=== PATIENT | female | born 1980 | race Two or more races ===

== ENCOUNTER 2018-06-08 23:47 | Inpatient (IN) | payer BC ==
[~2018-06-08] VITALS: Ht 172.7 cm; Wt 57.6 kg
[2018-06-08 20:00] VITALS: BP 103/73
[2018-06-09] VITALS (10 sets, daily range): BP systolic 91–110; BP diastolic 50–73
[2018-06-09] MEDS ORDERED: IV NS 0.9% 1,000 ML BAG IV ONE
[2018-06-09] MEDS ORDERED: ONDANSETRON HCL/PF 4 MG/2 ML VIAL IVP ONE
--- NOTE | 2018-06-09 | NUR ---
[id number] FR HOME FOR SYNCOPAL EPISODE IN [place] [facility], PER EMS, PT'S SIGNIFICANT OTHER HEARD THE PT DROP TO THE FLOOR BUT DID NOT WITNESS THE SYNCOPE. BG 111 IN FIELD. PT IS AAOX4. PT STATES HEADACHE PRIOR TO SYNCOPAL EPISODE. SKIN WNL. NO TRAUMA NOTED. PT DENIES HEAD TRAUMA. NO S/S OF DISTRESS NOTED. RR EVEN AND UNLABORED. PT PLACED ON BUNK ASSEMBLER AND POX. PT SAFETY AND COMFORT MEASURES IN PLACE. BEDSIDE FOR EVAL
[2018-06-09] MEDS ORDERED: ONDANSETRON HCL/PF 4 MG/2 ML VIAL ONE ×2 (00:02→01:04)
[2018-06-09 00:14] LABS: BASOPHILS % (AUTO) 0.4 % (0.0-2.0); EOSINOPHILS % (AUTO) 1.3 % (0.0-6.0); HEMATOCRIT 31 % (33-45); HEMOGLOBIN 9.7 g/dL (11.5-14.8); LYMPHOCYTES # (AUTO) 3.5 /CMM (0.8-4.8); LYMPHOCYTES % (AUTO) 41.6 % (20.0-44.0); MEAN CORPUSCULAR HGB CONC 31 g/dl (31.0-36.0); MEAN CORPUSCULAR VOLUME 81 fL (82-100); MONOCYTES # (AUTO) 0.5 /CMM (0.1-1.30); MONOCYTES % (AUTO) 5.6 % (2.0-12.0); NEUTROPHILS # (AUTO) 4.3 /CMM (1.8-8.9); NEUTROPHILS % (AUTO) 51.1 % (43.0-81.0); PLATELET COUNT (AUTO) 222 /CMM (150-450); RDW COEFFICIENT OF VARIATION 16.9 (11.5-15.0); RED BLOOD CELL COUNT(AUTO) 3.81 MIL/uL (4.0-5.2); WHITE BLOOD COUNT (AUTO) 8.4 K/uL (4.3-11.0)
[2018-06-09 00:35] LABS: INR 1.02 (0.87-1.13)
[2018-06-09 00:57] LABS: ALBUMIN 4.1 g/dL (3.4-5.0); BILIRUBIN,DIRECT 0.1 mg/dL (0.0-0.2); BILIRUBIN,TOTAL 0.4 mg/dL (0.2-1.0); TOTAL PROTEIN, SERUM 7.8 g/dL (6.4-8.2)
[2018-06-09 00:59] LABS: TROPONIN I 0.248 ng/mL (0.00-0.056)
[2018-06-09] MEDS ORDERED: ONDANSETRON HCL/PF 4 MG/2 ML VIAL IV ONE (01:00)
[2018-06-09 01:01] LABS: CALCIUM, SERUM 9.3 mg/dL (8.5-10.1); CREATININE 0.9 mg/dL (0.6-1.3); POTASSIUM 3.5 mmol/L (3.5-5.1)
--- NOTE | 2018-06-09 01:09 | NUR ---
PT TO CT
--- NOTE | 2018-06-09 02:05 | NUR ---
Patient is resting comfortably in bed with eyes closed. Easily aroused. VSS
[2018-06-09] MEDS ORDERED: ASPIRIN 325 MG TABLET ONE (02:28)
[2018-06-09] MEDS ORDERED: ASPIRIN 325 MG TABLET PO ONE (02:30)
--- NOTE | 2018-06-09 03:41 | NUR ---
CALLED RN SUP FOR TELE BED
--- NOTE | 2018-06-09 03:42 | NUR ---
PT ASSIGNED TO [facility] [id number]
--- NOTE | 2018-06-09 04:00 | NUR ---
REPORT GIVEN TO TRESSA DUPONT FOR CELY
--- NOTE | 2018-06-09 04:15 | NUR ---
tele/rn notes RECEIVED NEW ADMIT PATIENT IS A 37 Y.O FEMALE ADMITTED FROM ER FOR SYNCOPAL EPISODE CAUSED HER TO FALL IN HER KITCHEN FLOOR, WITH HEADACHE, HAS HISTORY OF HEAVY MENSTRUAL BLEEDING, CURRENTLY TAKING CONTROL PILL RECENTLY FOR ABOUT A WEEK., ALERT, ORIENTED X3, AMBULATORY AND ABLE TO VERBALIZE, PARTICIPATE WITH CARE, TELE READING WITH NSR AT 72, RESPIRATIONS EVEN AND UNLABORED, perrla, DENIES AND NO GUARDING OR GRIMACE, SKIN WARM TO TOUCH, PALE IN APPEARANCE, RIGHT WRIST GAUGE 20 PATENT, HGB LEVEL LOW AT 9.7, ADMITTED FOR NSTEMI WITH TROPONIN LEVEL HIGH AT 0.248. BELONGINGS CHECK AND RECONCILED, ROOM ORIENTATION PROVIDED, INSTRUCTED TO USE CALL LIGHTS FOR ASSISTANCE, FLAVORING MACHINE OPERATOR YAKELIN CONTACTED AWAITING FOR MEDICATION ORDERS, SKIN INTACT.
[2018-06-09] MEDS ORDERED: ONDANSETRON HCL/PF 4 MG/2 ML VIAL IVP PRN (06:00)
[2018-06-09] MEDS ORDERED: HYDROCODONE/APAP 5/325MG 1 EACH TABLET PO PRN (06:00)
[2018-06-09] MEDS ORDERED: ACETAMINOPHEN 325 MG TABLET PO PRN (06:00)
--- NOTE | 2018-06-09 06:30 | NUR ---
TELE/RN CLOSING NOTES PATIENT ALERT, ORIENTED X3, ABLE TO VERBALIZE NEEDS, COOPERATIVE TO CARE, RESPIRATIONS EVEN AND UNLABORED, RESTING COMFORTABLY AND ABLE TO SLEEP INTERMITTENTLY.SKIN WARM TO TOUCH, MD ORDER RECEIVED.PATIENT COMPLIANT TO CARE, BLOOD DRAW. HAD ONE DRINK OF ORANGE JUICE. NEW DIET ORDER FOR CARDIA. WILL ENDORSE TO AM RN FOR CELY.
[2018-06-09 06:31] LABS: BASOPHILS % (AUTO) 0.2 % (0.0-2.0); EOSINOPHILS % (AUTO) 0.3 % (0.0-6.0); HEMATOCRIT 29 % (33-45); HEMOGLOBIN 9.1 g/dL (11.5-14.8); LYMPHOCYTES # (AUTO) 1.8 /CMM (0.8-4.8); LYMPHOCYTES % (AUTO) 24.5 % (20.0-44.0); MEAN CORPUSCULAR HGB CONC 31 g/dl (31.0-36.0); MEAN CORPUSCULAR VOLUME 81 fL (82-100); MONOCYTES # (AUTO) 0.4 /CMM (0.1-1.30); MONOCYTES % (AUTO) 5.7 % (2.0-12.0); NEUTROPHILS # (AUTO) 5.1 /CMM (1.8-8.9); NEUTROPHILS % (AUTO) 69.3 % (43.0-81.0); PLATELET COUNT (AUTO) 194 /CMM (150-450); RDW COEFFICIENT OF VARIATION 16.8 (11.5-15.0); RED BLOOD CELL COUNT(AUTO) 3.58 MIL/uL (4.0-5.2); WHITE BLOOD COUNT (AUTO) 7.4 K/uL (4.3-11.0)
[2018-06-09 06:40] LABS: CALCIUM, SERUM 8.7 mg/dL (8.5-10.1); CREATININE 0.8 mg/dL (0.6-1.3); POTASSIUM 3.9 mmol/L (3.5-5.1)
[2018-06-09 06:44] LABS: TROPONIN I 0.234 ng/mL (0.00-0.056)
[2018-06-09 06:52] LABS: THYROID STIMULATING HORMONE 0.359 uIU/mL (0.358-3.74)
--- NOTE | 2018-06-09 07:00 | NUR ---
MANAGER CARDIOLOGY OPENING NOTES PATIENT ALERT, ORIENTED X3, ABLE TO VERBALIZE NEEDS, RESPIRATIONS EVEN AND UNLABORED,NO S/S DISTRESS NOTED, PT DENIES ANY PAIN AND SYNCOPE AT THIS TIME. SR 71-73 . WILL CONTINUE TO MONITOR.
[2018-06-09] MEDS ORDERED: NORE1TAB93 PO (07:24)
[2018-06-09] MEDS: PANTOPRAZOLE 40 MG TABLET.DR PO SCH (07:30)
[2018-06-09] MEDS ORDERED: ASPIRIN EC 325 MG TABLET.DR PO SCH (09:00)
[2018-06-09] MEDS: ASPIRIN 81 MG TAB.CHEW PO SCH (09:00)
--- NOTE | 2018-06-09 09:56 | NUR ---
spoke with engine house helper (jo) this AM regarding cardiac scan. Radiology is ready but waiting for a nurse to assist (administering intravenous medication and monitoring patient after exam). the engine house helper will notify radiology when a nurse will be available. also spoke with patients nurse (young) she is aware we are waiting on a nurse and that the engine house helper will notify us when we can proceed with the patients exam. Grey Arrieta RT, ARRT, CT
--- NOTE | 2018-06-09 10:19 | NUR ---
PT NPO FOR PROCEDURE CT [facility]
--- NOTE | 2018-06-09 12:00 | NUR ---
PT CAN HAVE PROCEDURE TOMORROW AND WILL BE NPO SINCE MIDNIGHT .
--- NOTE | 2018-06-09 18:25 | NUR ---
FARMWORKER CRANBERRY CLOSING NOTES PATIENT ALERT, ORIENTED X3. RESPIRATIONS EVEN AND UNLABORED,PATIENT WILL HAVE CT [facility] TOMORROW AND WILL BE NPO BY MIDNIGHT. WILL ENDORSE TO NEXT SHIFT FOR CELY.
--- NOTE | 2018-06-09 19:15 | NUR ---
INSPECTOR RECEIVING OPENING NOTES RECEIVED PATIENT AWAKE ALERT AND ORIENTED X 4, RESPIRATIONS EVEN AND UNLABORED WITH EQUAL RISE AND FALL OF CHEST, DENIES ANY PAIN OR DISCOMFORT AT THIS TIME, ON TELE MONITOR SR 84. RIGHT WRIST IV SITE #20G SL, INTACT AND PATENT, NO REDNESS, NO INFILTRATION PRESENT, DENIES ANY FEELINGS OF DIZZINESS, OR LIGHTHEADEDNESS, STATES FELT ONLY WHEN ADMITTED BUT SINCE HAS BEEN FINE. PATIENT AWARE OF PENDING PROCEDURE FOR TOMORROW OF CT [facility] AND CONSENT IS SIGNED AND DONE. FLUIDS AND SNACKS PROVIDED, SAFETY PRECAUTIONS IN PLACE, LOW BED AND LOCKED CALL LIGHT KEPT WITHIN REACH, ORIENTED TO STAFF, ALL NEEDS ATTENDED AT THIS TIME, PATIENT REMAINS COMFORTABLE WILL CONTINUE TO MONITOR.
--- NOTE | 2018-06-09 19:39 | NUR ---
ETL ARCHITECT NOTES PATIENT ASKED IF ABLE TO TAKE CONTROL PER PATIENT STARTED IT LAST MONDAY AND WILL LIKE TO CONTINUE TAKING IT. PATIENT IS TAKING LO LESTRIN FE 1MG. CALLED AND SPOKED TO MADE AWARE OF CONTROL AND ASKED IF PATIENT OKAY TO TAKE,PER MD OKAY TO TAKE TODAY'S DOSE.
[2018-06-10] VITALS: BP 109/67
[2018-06-10 04:00] VITALS: BP_SYST 109; BP_SYST 93; BP_DIAS 58
--- NOTE | 2018-06-10 06:34 | NUR ---
HEAD END DESIZING MACHINE OPERATOR CLOSING NOTES PATIENT SLEEPING BUT EASILY AROUSABLE ALERT AND ORIENTED X 4, RESPIRATIONS EVEN AND UNLABORED WITH EQUAL RISE AND FALL OF CHEST, DENIES ANY PAIN OR DISCOMFORT AT THIS TIME, ON TELE MONITOR SR 60. RIGHT WRIST IV SITE #20G SL, INTACT AND PATENT, NO REDNESS, NO INFILTRATION PRESENT, DENIES ANY FEELINGS OF DIZZINESS, OR LIGHTHEADEDNESS PATIENT AWARE OF PENDING PROCEDURE FOR CT [facility] AND CONSENT IS SIGNED AND DONE. PATIENT HAS BEEN NPO SINCE 06/10/18 MIDNIGHT , PATIENT MADE AWARE MUST REMOVE JEWELRY PRIOR TO PROCEDURE IS AWARE AND WILL ENDORSE TO NEXT SHIFT. SAFETY PRECAUTIONS IN PLACE, LOW BED AND LOCKED CALL LIGHT KEPT WITHIN REACH,, ALL NEEDS ATTENDED AT THIS TIME, PATIENT REMAINS COMFORTABLE WILL CONTINUE TO MONITOR AND ENDORSE TO NEXT SHIFT, NO CHANGE OF CONDITION THROUGHOUT SHIFT.
--- NOTE | 2018-06-10 07:00 | NUR ---
DIVISION OPERATIONS SPECIALIST OPENING NOTES PATIENT ALERT, ORIENTED X3, ABLE TO VERBALIZE NEEDS, RESPIRATIONS EVEN AND UNLABORED,NO S/S DISTRESS NOTED, PT DENIES ANY PAIN AND SYNCOPE AT THIS TIME. SR 71-73.IV SIDE INTACT AND PATENT. PT NPO AND AWAITING FOR PROCEDURE WILL CONTINUE TO MONITOR.
[2018-06-10] MEDS: PANTOPRAZOLE 40 MG TABLET.DR PO SCH (07:30)
[2018-06-10 08:00] VITALS: BP 98/59
[2018-06-10] MEDS: ASPIRIN 81 MG TAB.CHEW PO SCH (09:00)
--- NOTE | 2018-06-10 09:00 | NUR ---
0900 MEDS ARE NOT GIVEN DUE TO NPO STATUS
[2018-06-10 09:45] LABS: BASOPHILS % (AUTO) 0.3 % (0.0-2.0); EOSINOPHILS % (AUTO) 1.4 % (0.0-6.0); HEMATOCRIT 31 % (33-45); HEMOGLOBIN 9.7 g/dL (11.5-14.8); LYMPHOCYTES # (AUTO) 2.1 /CMM (0.8-4.8); LYMPHOCYTES % (AUTO) 33.1 % (20.0-44.0); MEAN CORPUSCULAR HGB CONC 32 g/dl (31.0-36.0); MEAN CORPUSCULAR VOLUME 82 fL (82-100); MONOCYTES # (AUTO) 0.4 /CMM (0.1-1.30); MONOCYTES % (AUTO) 6.7 % (2.0-12.0); NEUTROPHILS # (AUTO) 3.7 /CMM (1.8-8.9); NEUTROPHILS % (AUTO) 58.5 % (43.0-81.0); PLATELET COUNT (AUTO) 195 /CMM (150-450); RDW COEFFICIENT OF VARIATION 16.9 (11.5-15.0); RED BLOOD CELL COUNT(AUTO) 3.73 MIL/uL (4.0-5.2); WHITE BLOOD COUNT (AUTO) 6.4 K/uL (4.3-11.0)
[2018-06-10 09:59] LABS: CALCIUM, SERUM 8.6 mg/dL (8.5-10.1); CREATININE 0.8 mg/dL (0.6-1.3); POTASSIUM 3.8 mmol/L (3.5-5.1)
[2018-06-10 10:04] LABS: ALBUMIN 3.4 g/dL (3.4-5.0); BILIRUBIN,TOTAL 0.5 mg/dL (0.2-1.0); MAGNESIUM 1.7 mg/dL (1.8-2.4); PHOSPHORUS 3.1 mg/dL (2.5-4.9); TOTAL PROTEIN, SERUM 6.8 g/dL (6.4-8.2)
--- NOTE | 2018-06-10 12:37 | NUR ---
PT LEFT UNIT FOR PROCEDURE
[2018-06-10] MEDS ORDERED: CT SWABBABLE VALVE TRANS SET 1 EA INFUS.SET MC ONE (12:38)
[2018-06-10] MEDS ORDERED: NITROGLYCERIN 0.4 MG/TAB BOTTLE ONE (12:38)
[2018-06-10] MEDS ORDERED: IV NS 0.9% 250 ML IV ONE ×2 (12:38→13:25)
[2018-06-10] MEDS ORDERED: METOPROLOL TARTRATE INJ 5 MG/5 ML AMPUL ONE ×3 (12:38→13:25)
[2018-06-10] MEDS ORDERED: IOHEXOL-350 100 ML VIAL IV ONE (12:38)
--- NOTE | 2018-06-10 15:19 | NUR ---
PRT DR NATION CT [facility] IS NORMAL. PT CAN BE D/C TO HOME.
--- NOTE | 2018-06-10 15:22 | NUR ---
PLACED AN ORDER FOR D/C PER MG
[2018-06-10 16:00] VITALS: BP 134/60
--- NOTE | 2018-06-10 18:11 | NUR ---
D/C NOTES PT A/O X4 , VS ARE STABLE. PT RECEIVED D/C DOCUMENTATION AND INSTRUCTIONS AND SIGHED IT. PT VERBALIZED UNDERSTANDING, WILL F/U WITH PRIMARY CARE PROVIDER IN ONE WEEK. PT LEFT UNIT AMBULATORY WITH HER .
== END 2018-06-10 18:11 | disposition home or self-care (01) | DRG 811 ==
LOC: ER 23:48 → TELE 06-09 03:43 → MED 06-10 08:59
PROVIDERS: ADMIT Internal Medicine; ATTEND Internal Medicine
DX: D50.9 Iron deficiency anemia, unspecified (principal); I21.A1 Myocardial infarction type 2
CPT/HCPCS: 36415; 70450-TC; 71045-TC; 75574; 80048-TC; 80053-TC; 80061-TC; 80076-TC; 80305; 82962-TC; 83540-TC; 83735-TC; 84100-TC; 84443-TC; 84484-TC; 84703-TC; 85025-TC; 85730-TC; 86850-TC; 87081-TC; 93307-TC; A4606; G0378; J2405; J3490; J7030; J7050; Q9967; Z7610